=== PATIENT | male | born 1970 | race Caucasian/White ===

== ENCOUNTER 2018-03-15 18:43 | Emergency (ER) | payer MEDICAID, BC ==
[2018-03-15] MEDS: ALPRAZOLAM 0.25 MG TAB PO (19:58)
== END 2018-03-15 20:37 | disposition home or self-care (01) ==
LOC: E/R 18:43
DX: F41.9 Anxiety disorder, unspecified (principal); E03.9 Hypothyroidism, unspecified; R07.9 Chest pain, unspecified
CPT/HCPCS: 71045; 93005; 99284-25